=== PATIENT | male | born 1980 | race African-American/Black ===

== ENCOUNTER 2023-08-15 19:47 | Inpatient (IN) | payer OTHER ==
[2023-08-15 20:34] VITALS: BMI 30.4
[2023-08-15] MEDS ORDERED: BENZONATATE 200 MG CAPSULE PO PRN (21:25)
[2023-08-15] MEDS ORDERED: hydrOXYzine PAMOATE 25 MG CAPSULE (FP) PO PRN (21:25)
[2023-08-15] MEDS ORDERED: BENZOCAINE/MENTHOL (CHLORASEPTIC ) LOZENGE MM PRN (21:25)
[2023-08-15] MEDS ORDERED: guaiFENesin 600 MG TABLET.ER (FP) PO PRN (21:25)
[2023-08-15] MEDS ORDERED: IBUPROFEN 400 MG TABLET (FP) PO PRN (21:25)
[2023-08-15] MEDS ORDERED: MAGNESIUM HYDROX 2400MG/30ML ORAL SUSPENSION 30 ML CUP PO PRN (21:25)
[2023-08-15] MEDS ORDERED: IBUPROFEN 600 MG TABLET (FP) PO PRN (21:25)
[2023-08-15] MEDS ORDERED: NALOXONE HCL (KLOXXADO) 8 MG SPRAY NS PRN (21:25)
[2023-08-15] MEDS ORDERED: NICOTINE POLACRILEX 2 MG GUM BUC PRN (21:25)
[2023-08-15] MEDS ORDERED: NALOXONE HCL 0.4 MG/ML VIAL IM PRN (21:25)
[2023-08-15] MEDS ORDERED: POLYETHYLENE GLYCOL (HEALTHYLAX) 3350 17 GM PACKET PO PRN (21:25)
[2023-08-15] MEDS ORDERED: ACETAMINOPHEN 325 MG TABLET (FP) PO PRN (21:25)
[2023-08-15] MEDS ORDERED: MAG HYDROX/AL HYDROX/SIMETH 30 ML UNIT-DOSE CUP PO PRN (21:25)
[2023-08-15] MEDS ORDERED: LOPERAMIDE HCL 2 MG CAPSULE PO PRN (21:25)
[2023-08-15] MEDS ORDERED: MELATONIN 5 MG TABLETS ONE (22:51)
[2023-08-15] MEDS: MELATONIN 5 MG TABLETS PO SCH (23:09)
[2023-08-15] MEDS: THIAMINE HCL 100 MG TABLET (FP) PO SCH (23:09)
[2023-08-16] MEDS: TUBERCULIN PPD 5 TU/0.1ML SYRINGE (IN PATIENT USE ONLY) ID ONE (07:40)
[2023-08-16] MEDS: PRENATAL VITAMINS W/ FOLIC ACID TABLET (FP) PO SCH (10:09)
[2023-08-16] MEDS: NICOTINE 14 MG/24 HOURS TOPICAL PATCH TD SCH (10:09)
[2023-08-18 11:03] LABS: PH,URINE 6.5 (5.0-8.0); URINE APPEARANCE CLEAR; URINE BILIRUBIN NEGATIVE (NEGATIVE); URINE COLOR YELLOW; URINE GLUCOSE (UA) NEGATIVE (NEGATIVE); URINE KETONE NEGATIVE (NEGATIVE); URINE LEUK ESTERASE NEGATIVE (NEGATIVE); URINE NITRITE NEGATIVE (NEGATIVE); URINE PROTEIN NEGATIVE (NEGATIVE); URINE UROBILINOGEN 0.2 mg/dL (0.2-1.0)
[2023-08-18 14:42] LABS: HEMATOCRIT 41.1 % (35.4-49); HEMOGLOBIN 13.9 GM/dL (11.7-16.9); MCH 30.6 pg (25.7-33.7); MCHC 33.9 g/dl (32.0-35.9); MEAN CELL VOLUME 90.2 fl (80-96); MEAN PLT VOLUME 8.9 fl (7.5-11.1); PLATELET COUNT 273 10^3/uL (134-434); RBC 4.56 M/mm3 (4.00-5.60); RDW 14.4 % (11.9-15.9); WHITE BLOOD COUNT 4.4 K/mm3 (4.0-10.0)
[2023-08-20] MEDS: OLANZapine 5 MG TABLET PO SCH (21:36)
[2023-08-31 06:51] VITALS: RESP 18
[2023-09-01 06:24] VITALS: BP 116/75; PULSE 82; TEMP 97.7
== END 2023-09-01 09:27 | disposition home or self-care (01) | DRG 772 ==
LOC: YASAS 19:47 → Y3NR 08-16 01:16 → Y3W 08-17 11:42
PROVIDERS: ADMIT Allergy & Immunology; ATTEND Psychiatry & Neurology Pain Medicine
PROC: HZ42ZZZ Group Counseling for Substance Abuse Treatment, Cognitive-Behavioral (ICD-10-PCS; principal; 2023-08-16)
DX: F10.20 Alcohol dependence, uncomplicated (principal); F14.20 Cocaine dependence, uncomplicated; F15.10 Other stimulant abuse, uncomplicated; F12.20 Cannabis dependence, uncomplicated; F17.210 Nicotine dependence, cigarettes, uncomplicated; F19.280 Other psychoactive substance dependence with psychoactive substance-induced anxiety disorder; F19.24 Other psychoactive substance dependence with psychoactive substance-induced mood disorder; F31.9 Bipolar disorder, unspecified; F41.9 Anxiety disorder, unspecified; B18.2 Chronic viral hepatitis C; Z28.310 Unvaccinated for COVID-19; Z28.9 Immunization not carried out for unspecified reason; Z86.19 Personal history of other infectious and parasitic diseases; Z56.0 Unemployment, unspecified; Z59.00 Homelessness unspecified
CPT/HCPCS: 36415; 81003; 85027; 86593; 86780; 87635; 93005; 93010